=== PATIENT | female | born 1980 | race Asian ===

== ENCOUNTER 2016-08-18 07:26 | Emergency (ER) | payer MEDICAID ==
[~2016-08-18] VITALS: Ht 162.6 cm; Wt 127.0 kg
--- NOTE | 2016-08-18 07:26 | NUR ---
PT BIBA TO BED 2.
--- NOTE | 2016-08-18 07:27 | NUR ---
36F BIBA FROM HOME C/O SEIZURE X TODAY D/T LACK OF SLEEP; PER EMS, PT HAD WITNESSED TONIC CLONIC SEIZURE LASTING 3 MINUTES, WITNESSED BY /DAUGHTER; PT STATES HAD ONE SEIZURE 6 YEARS AGO S/P FATIGUE; PT C/O ACHING TONGUE PAIN, 5/10 AT THIS TIME S/P BITING SIDES OF TONGUE DURING SEIZURE; NO BLEEDING NOTED TO SITES AT THIS TIME. A&OX4, BL LUNG SOUNDS CLEAR, RR EVEN/UNLABORED, SKIN IS WARM/DRY AT THIS TIME; PT DENIES N/V/D AT THIS TIME; PT CHANGED IN GOWN, PLACED IN MONITOR, RESTING IN BED W/ HOB ELEVATED AND IN LOWEST POSITION; POSITIONED FOR COMFORT; ER MADE AWARE OF STATUS. WILL CONTINUE TO MONITOR. Addendum: 08/18/16 at 0740 by [employer] PT NOTED W/ TACHYCARDIA ON THE MONITOR AT THIS TIME.
[2016-08-18 07:28] VITALS: BP 138/91
[2016-08-18] MEDS ORDERED: LORazepam 1 MG TAB PO ONE (07:30)
[2016-08-18] MEDS ORDERED: ACETAMINOPHEN EXTRA STRENGTH 500 MG TAB PO ONE (07:30)
--- NOTE | 2016-08-18 07:35 | NUR ---
LAB AT BEDSIDE.
--- NOTE | 2016-08-18 07:42 | NUR ---
PT TAKEN TO CT VIA [place] ACCOMPANIED BY [employer] AT THIS TIME.
--- NOTE | 2016-08-18 07:58 | NUR ---
PT STATES " I FEEL FINE", DID NOT WANT OXYGEN; O2 SAT 97 % ON ROOM AIR AT THIS TIME; RR EVEN/UNLABORED AT THIS TIME; WILL CONTINUE TO MONITOR.
--- NOTE | 2016-08-18 09:20 | NUR ---
IV removed, catheter intact and site benign. Applied folded 4x4 gauze and tape to stop bleeding. PT TOLERATED PROCEDURE WELL.
[2016-08-18 09:25] VITALS: BP 128/75
--- NOTE | 2016-08-18 09:25 | NUR ---
Patient discharged with v/s stable. Written and verbal after care instructions given and explained. Patient verbalized understanding. Wheel Chair Assisted with to car. All questions addressed prior to discharge. Advised to follow up with PMD.
== END 2016-08-18 09:25 | disposition home or self-care (01) ==
LOC: MED 07:26
DX: R56.9 Unspecified convulsions (principal); R51 Headache

== ENCOUNTER 2016-09-16 06:15 | Emergency (ER) | payer MEDICAID ==
[~2016-09-16] VITALS: Ht 162.6 cm; Wt 127.0 kg
--- NOTE | 2016-09-16 06:15 | NUR ---
Patient was BIBA and taken to bed 03 via gurney per EMS.
--- NOTE | 2016-09-16 06:15 | NUR ---
36Y F BIBA C/O SEIZURE TONIC-CLONIC WHILE AT HOME, WITH WHO WITNESSED. TOLD EMS SEIZURE LASTED 2 MINS. NO VISIBLE BITE COTTON ARE NOTED OF THE TONGUE OR MOUTH UPON ASSESSMENT. PT STATES BEFORE THIS SEIZURE, SHE HAD ONE A MONTH AGO AND BEFORE THAT ITS BEEN MONTHS SINCE SHE HAD A SEIZURE SO SHE STOPPED TAKING HER DEPAKOTE 250MG . PT DENIES N/V/D; SKIN IS PINK/WARM/DRY; AAOX3, CANNOT RECALL THE PRESIDENT AT THE MOMENT; LUNGS CLEAR BL; HR EVEN AND REGULAR; PT DENIES ANY FEVER, CP, SOB, OR COUGH AT THIS TIME; PATIENT STATES PAIN OF 0/10 AT THIS TIME; VSS; PATIENT POSITIONED FOR COMFORT; HOB ELEVATED; BEDRAILS UP X2; BED DOWN. ER MD MADE AWARE OF PT STATUS.
[2016-09-16 06:24] VITALS: BP 139/86
[2016-09-16] MEDS ORDERED: NACL 0.9% 1,000 ML IV SCH (06:25)
[2016-09-16] MEDS ORDERED: LORazepam 2 MG/ML VIAL IVP ONE (06:30)
[2016-09-16 06:41] LABS: BASOPHILS # (AUTO) 0.2 K/uL (0.00-0.22); EOSINOPHILS # (AUTO) 0.2 K/uL (0-0.4); EOSINOPHILS % (AUTO) 1.7 % (0.0-4.0); HEMATOCRIT 41.3 % (36-48); HEMOGLOBIN 13.1 g/dL (12.0-16.0); LYMPHOCYTES # (AUTO) 3.2 K/uL (2.5-16.5); LYMPHOCYTES % (AUTO) 36.3 % (20.5-51.1); MEAN CORPUSCULAR HEMOGLOBIN 26 pg (27-31); MEAN CORPUSCULAR HGB CONC 32 g/dL (33-37); MEAN CORPUSCULAR VOLUME 81 fL (80-94); MONOCYTES # (AUTO) 0.3 K/uL (0.8-1.0); MONOCYTES % (AUTO) 3.5 % (1.7-9.3); NEUTROPHILS % (AUTO) 56.5 % (42.2-75.2); PLATELET COUNT (AUTO) 224 K/uL (140-450); RED BLOOD CELL COUNT(AUTO) 5.09 MIL/uL (4.20-5.40); RED CELL DISTRIBUTION WIDTH 14.2 % (11.6-13.7); WHITE BLOOD COUNT (AUTO) 8.9 K/uL (4.8-10.8)
[2016-09-16 06:54] LABS: ALBUMIN 3.7 g/dL (3.4-5.0); ANION GAP 17.2 (8-16); CALCIUM 8.4 mg/dL (8.5-10.1); CARBON DIOXIDE 22.5 mmol/L (21-32); CREATININE 1.2 mg/dL (0.6-1.3); POTASSIUM 3.7 mmol/L (3.5-5.1); TOTAL BILIRUBIN 0.3 mg/dL (0.0-1.0); TOTAL PROTEIN, SERUM 7.6 g/dL (6.4-8.2)
[2016-09-16] MEDS ORDERED: VALPROATE SODIUM 500 MG in NACL 0.9% 100 ML IV ONE (07:10)
--- NOTE | 2016-09-16 07:13 | NUR ---
Pt report given to ELA ALLISON. Transfer of care at this time.
[2016-09-16 07:23] LABS: BILIRUBIN,URINE NEGATIVE (NEGATIVE); BLOOD, URINE 1+ (NEGATIVE); COLOR,URINE YELLOW (YELLOW); LEUKOCYTE ESTERASE ,URINE NEGATIVE (NEGATIVE); NITRITE, URINE NEGATIVE (NEGATIVE); PH,URINE 5.5 (5.0-9.0); PROTEIN,URINE 1+ (NEGATIVE); UGLUCOSE NEGATIVE (NEGATIVE); UROBILINOGEN,URINE 0.2 EU/dL (0.2 - 1)
--- NOTE | 2016-09-16 07:23 | NUR ---
PT TO CT BY [facility] FROM ED.
[2016-09-16 07:30] LABS: APPEARANCE,URINE SLIGHTLY HAZY (CLEAR)
[2016-09-16 07:31] LABS: BACTERIA,URINE None Seen /HPF (None Seen); RBC,URINE 0-5 (RARE) /HPF (0-5); SQUAMOUS EPITHELIAL CELL,UR 0-3 (FEW) /LPF (0-3 (FEW)); WBC,URINE 0-5 (RARE) /HPF (0-5)
[2016-09-16] MEDS ORDERED: VALPROATE SODIUM 500 MG/5 ML VIAL IV ONE (07:31)
--- NOTE | 2016-09-16 07:43 | NUR ---
PT ASLEEP,SEIZURE PREACAUTIONS IN PLACE, PT SAFE.
[2016-09-16 09:04] VITALS: BP 134/76
--- NOTE | 2016-09-16 09:05 | NUR ---
Patient discharged with v/s stable. Written and verbal after care instructions given and explained. Patient alert, oriented and verbalized understanding of instructions. Ambulatory with steady gait. All questions addressed prior to discharge. ID band removed. Patient advised to follow up with PMD. Rx of DEPAKOTE 250MG, GIVEN SAFETY INSTRUCTION FOR SEIZURES given. Patient educated on indication of medication including possible reaction and side effects. Opportunity to ask questions provided and answered.
== END 2016-09-16 09:05 | disposition home or self-care (01) ==
LOC: MED 06:15
DX: G40.802 Other epilepsy, not intractable, without status epilepticus (principal)
CPT/HCPCS: 36415; 70450; 80053; 80185; 81001; 81025; 82150; 83690; 84703; 85025; 96361; 96365; 96375; 99285; J2060; J3490; J7030

== ENCOUNTER 2022-08-04 17:45 | Emergency (ER) | payer OTHER ==
[~2022-08-04] VITALS: Ht 172.7 cm; Wt 123.8 kg
[2022-08-04 17:49] VITALS: BP 136/72
--- NOTE | 2022-08-04 17:49 | NUR ---
[facility] TO ER BED 5
--- NOTE | 2022-08-04 17:52 | NUR ---
BS 134 BY EMS LETTER OF CREDIT DOCUMENT EXAMINER
[2022-08-04 17:57] VITALS: BP 159/102
--- NOTE | 2022-08-04 17:58 | NUR ---
PATIENT PRESENTS TO ED S/P SZ . PT STATES SHE HAS BEEN FEELING OVERWHELMED D/T RECENT PASSING OF HER 3 MONTHS AGO. PATIENT REPORTS SHE IS ON DEPAKOTE DAILY AND IS COMPLIANT WITH MEDICATIONS . DENIES N/V/D; SKIN IS PINK/WARM/DRY; AAOX4; LUNGS CLEAR BL; HR EVEN AND REGULAR; PT DENIES ANY FEVER, CP, SOB, OR COUGH AT THIS TIME; PATIENT STATES PAIN OF 0/10 AT THIS TIME; VSS; PATIENT POSITIONED FOR COMFORT; HOB ELEVATED; BEDRAILS UP X2; BED DOWN. ER MD MADE AWARE OF PT STATUS.
[2022-08-04 19:01] LABS: BASOPHILS # (AUTO) 0.1 K/uL (0.00-0.22); BASOPHILS % (AUTO) 0.6 % (0.0-2.0); EOSINOPHILS # (AUTO) 0.1 K/uL (0-0.4); EOSINOPHILS % (AUTO) 0.6 % (0.0-4.0); HEMATOCRIT 39.1 % (36-48); HEMOGLOBIN 12.6 g/dL (12.0-16.0); LYMPHOCYTES % (AUTO) 21.4 % (20.5-51.1); MEAN CORPUSCULAR HEMOGLOBIN 24 pg (27-31); MEAN CORPUSCULAR HGB CONC 32 g/dL (33-37); MEAN CORPUSCULAR VOLUME 75.1 fL (80-94); MONOCYTES # (AUTO) 0.3 K/uL (0.8-1.0); MONOCYTES % (AUTO) 3.5 % (1.7-9.3); NEUTROPHILS # (AUTO) 6.8 K/uL (1.8-7.7); NEUTROPHILS % (AUTO) 73.9 % (42.2-75.2); PLATELET COUNT (AUTO) 308 K/uL (140-450); RED BLOOD CELL COUNT(AUTO) 5.21 MIL/uL (4.20-5.40); RED CELL DISTRIBUTION WIDTH 15.6 % (11.6-13.7); WHITE BLOOD COUNT (AUTO) 9.2 K/uL (4.8-10.8)
[2022-08-04 19:23] LABS: ALBUMIN 4.2 g/dL (3.4-5.0); ANION GAP 16.9 (8-16); CARBON DIOXIDE 25.4 mmol/L (21-32); CREATININE 1.2 mg/dL (0.6-1.3); POTASSIUM 4.3 mmol/L (3.5-5.1); TOTAL BILIRUBIN 0.2 mg/dL (0.0-1.0)
--- NOTE | 2022-08-04 19:48 | NUR ---
d/c with VSS. d/c education given. opportunty to ask questions given and answered. no rx given.
== END 2022-08-04 19:48 | disposition home or self-care (01) ==
LOC: MED 17:45
DX: S09.8XXA Other specified injuries of head, initial encounter (principal); R56.9 Unspecified convulsions; X58.XXXA Exposure to other specified factors, initial encounter; Y93.89 Activity, other specified; Y92.89 Other specified places as the place of occurrence of the external cause; Y99.8 Other external cause status
CPT/HCPCS: 36415; 70450; 80053; 81025; 85025; 99284

== ENCOUNTER 2023-03-03 16:28 | Emergency (ER) | payer OTHER ==
[~2023-03-03] VITALS: Ht 162.6 cm; Wt 81.6 kg
[2023-03-03 16:33] VITALS: BP 129/68; PULSE 127; RESP 19; TEMP 97.6; O2SAT 98
[2023-03-03] MEDS ORDERED: NACL 0.9% 1,000 ML IV ONE (16:45)
[2023-03-03 18:11] VITALS: BP 130/65; PULSE 103; RESP 20; TEMP 97.6; O2SAT 98
== END 2023-03-03 18:11 | disposition home or self-care (01) ==
LOC: MED 16:28
DX: R55 Syncope and collapse (principal)
CPT/HCPCS: 93005; 96360; 99283; J7030